=== PATIENT | female | born 1940 | race African-American/Black ===

== ENCOUNTER 2020-05-05 11:19 | Inpatient (IN) | payer OTHER ==
[~2020-05-05] VITALS: Ht 154.9 cm; Wt 76.2 kg
[2020-05-05 11:26] VITALS: BP 168/93
--- NOTE | 2020-05-05 12:07 | NUR ---
RETURNED FROM RADIOLOGY
[2020-05-05 12:09] LABS: RDW 16.2 % (10.5-14.5); WBC 4.3 thou/uL (4.0-11.0)
[2020-05-05 12:12] LABS: HEMOGLOBIN 9.1 gm/dL (12.0-15.0); MCH 29.5 pg (26.0-34.0); MCHC 30.4 g/dL (28.0-37.0); MCV 96.9 fL (80.0-100.0); PLATELET COUNT 297 thou/uL (150-400)
[2020-05-05 12:19] LABS: ANION GAP 11 mmol/L (7-16); BUN 39 mg/dL (7-18); CALCIUM 10.1 mg/dL (8.5-10.1); CHLORIDE 108 mmol/L (98-107); CO2 21 mmol/L (21-32); CREATININE 2.2 mg/dL (0.6-1.0); GLUCOSE 88 mg/dL (74-106); POTASSIUM 4.3 mmol/L (3.5-5.1); SODIUM 140 mmol/L (136-145)
[2020-05-05 12:29] LABS: ALBUMIN 2.6 g/dL (3.4-5.0); DIRECT BILIRUBIN < 0.1 mg/dL (<0.1-0.2); SGOT 27 U/L (15-37); SGPT 16 U/L (14-59); TOTAL BILIRUBIN 0.2 mg/dL (0.2-1.0); TOTAL PROTEIN 6.9 g/dL (6.4-8.2); TROPONIN-I <0.06 ng/mL (<0.06)
[2020-05-05 13:05] LABS: URINE BILIRUBIN NEGATIVE (Negative); URINE BLOOD 1+ (Negative); URINE CLARITY CLOUDY; URINE COLOR YELLOW; URINE GLUCOSE-RANDOM* NEGATIVE (Negative); URINE KETONES NEGATIVE (Negative); URINE LEUKOCYTES-REFLEX 3+ (Negative); URINE NITRITE-REFLEX NEGATIVE (Negative); URINE PROTEIN (DIPSTICK) 2+ (Negative); URINE UROBILINOGEN 0.2 E.U./dl (0.2-1.0)
[2020-05-05 13:09] LABS: ABSOLUTE NEUTROPHILS 1.2 thou/uL (1.4-8.2); ATYPICAL LYMPHS 5 %; PLATELET ESTIMATE NORMAL
[2020-05-05 13:17] LABS: AMORPHOUS URATES Many /LPF (None Seen); BACTERIA-REFLEX None Seen /HPF (None Seen); CASTS None Seen /LPF (None Seen); SQUAMOUS None Seen /LPF (0-3); URINE RBC 0-2 Rare /HPF (0-2); URINE WBC-REFLEX >25 Many /HPF (0-5)
[2020-05-05] MEDS ORDERED: LEVOTHYROXINE175 MCG PO (15:24)
[2020-05-05] MEDS ORDERED: FLUTICASONE PRO16 GM NARES (15:25)
[2020-05-05] MEDS ORDERED: LOPRESSOR50 PO (16:48)
[2020-05-05] MEDS ORDERED: OMEPRAZOLE40 MG PO (16:48)
[2020-05-05] MEDS ORDERED: NORVASC5 MG PO (16:50)
[2020-05-05] MEDS ORDERED: ALLOPURINOL 30300 M1 PO (16:50)
[2020-05-05] MEDS ORDERED: ASA81BEC PO (16:51)
[2020-05-05] MEDS ORDERED: LOPERAMIDE2 MG PO (16:52)
[2020-05-05] MEDS ORDERED: THERAGRAN-M PR1 EAC1 PO (16:53)
[2020-05-05] MEDS ORDERED: LORATIDINE 10 M10 M1 PO (16:53)
[2020-05-05] MEDS ORDERED: VITAMIN C500 M2 PO (16:54)
[2020-05-05] MEDS ORDERED: VITAMIN D325 MC3 PO (16:55)
[2020-05-05] MEDS ORDERED: ZINC SULFATE220 MG PO (16:55)
[2020-05-05] MEDS ORDERED: [UNRECOGNIZED DRUG - OTHER] PO (16:57)
--- NOTE | 2020-05-05 17:00 | NUR ---
NAOMI APPLIED FOR INCONTINENCY OF URINE
[2020-05-05 18:49] VITALS: BP 124/64
[2020-05-05 21:04] VITALS: BP 124/64
[2020-05-05 21:34] VITALS: BP 132/67
[2020-05-05 22:00] VITALS: BP 149/83
--- NOTE | 2020-05-06 03:14 | NUR ---
PT CARE ADMITTED INTO THE UNIT FROM THE ER WITH COMPLAIN OF BODY WEAKNESS AND GENERALIZED BODY PAIN.PT IS ON BEDREST AND USING A WHEELCHAIR AT FACILITY.PT IS A/O X4.ABLE TO GIVE HISTORY AND KNOW WHERE SHE IS WITH NO CONFUSION.PT REFUSED TYLENOL FOR PAIN AND JUST WANTED TO BE REPOSITIONED AND SAID SHE IS FINE WITH BEING REPOSITIONED AND SBLE TO TURN FROM SIDE TO SIDE.SISTER CALLED TWICE BUT NURSE WAS BUSY.I RETURNED THE CALLS 3X BUT UNABLE TO REACH HER.PT HAS EXTERNAL CATHETER IN PLACE.AND SKIN INTACT.FALL PRECAUTIONS IN PLACE AND PT ABLE TO CALL FOR HELP APPROPRIETELY.WILL CONTINUE TO MONITOR PER POC
[2020-05-06 04:56] LABS: HEMATOCRIT 26.3 % (37.0-47.0); HEMOGLOBIN 8.2 gm/dL (12.0-15.0); MCH 30.3 pg (26.0-34.0); MCHC 31.2 g/dL (28.0-37.0); MCV 97.1 fL (80.0-100.0); RBC 2.71 mil/uL (4.20-5.00); RDW 16.2 % (10.5-14.5); WBC 3.8 thou/uL (4.0-11.0)
[2020-05-06 05:05] LABS: CALCIUM 9.4 mg/dL (8.5-10.1); POTASSIUM 4.3 mmol/L (3.5-5.1)
[2020-05-06 05:29] VITALS: BP 138/73
[2020-05-06 08:13] VITALS: BP 144/94
[2020-05-06 16:47] VITALS: BP 144/78
--- NOTE | 2020-05-06 17:41 | NUR ---
Assumed pt care at 7am.Pt in bed c/o cold temp.Termostat in room adjusted but room still cold.Warm blanket given but pt still cold.Pt transfered to 458 before lunch.Assessment completed.vss.Pt has good appetite and adequate u/o per andre. Maintenace ivf in progress. Fall bundle in place.Will continue to monitor.
[2020-05-06 19:30] VITALS: BP 133/73
--- NOTE | 2020-05-07 03:20 | NUR ---
PT CARE ASSUMED WITH PT IN BED WATCHING TV.PT IS A/O X4.PT DENIED PAIN,N/V. AND APPEAR TO BE IN NO ACUTE DISTRESS.IV ACCESS ON RT AC WITH NS AT 100CC/HR.PT HAS A PUREWICK WORKING OK WITH GOOD OUTPUT.WILL CONTINUE TO MONITOR
[2020-05-07 07:07] VITALS: BP 128/81
--- NOTE | 2020-05-07 07:30 | EKG ---
[place] [address] [email or web address] [place] [address] ELECTROCARDIOGRAM REPORT Name: PAZ SYLVESTER Room #: 458-P ADM IN M.R.#: [id number] Admission: 05/05/20 Attend Phys: Ralph Wilkes MD Discharge: Date of : 42 Report #: [id number] [facility] ED Test Date: 2020-05-05 Test Time: 11:36:04 Pat Name: PAZ SYLVESTER Department: Room: 458 Gender: F Resident Care Associate: KF : 1940 Requested By: Yosi Cannon Order Number: [id number] MD: Jose David Gamez Measurements Intervals Rush Rate: 67 P: 32 AK: 178 QRS: -15 QRSD: 92 T: 25 QT: 426 QTc: 450 Interpretive Statements Sinus rhythm Inferior infarct, old Poor R wave progression Baseline wander in lead(s) V1 No previous ECG available for comparison Electronically Signed On 05-07-2020 7:30:35 MERCHANDISE MARKER by Jose David Gamez [email or web address] <ELECTRONICALLY SIGNED> By: Jose David Gamez MD, [facility] 05/07/20 0730 1136 113 Jose David Gamez MD, FACC /EPI
[2020-05-07 10:11] LABS: HEMATOCRIT 26.7 % (37.0-47.0); HEMOGLOBIN 8.3 gm/dL (12.0-15.0); MCV 96.9 fL (80.0-100.0); RBC 2.76 mil/uL (4.20-5.00); RDW 15.6 % (10.5-14.5)
[2020-05-07 10:22] LABS: CALCIUM 9.4 mg/dL (8.5-10.1); CREATININE 1.8 mg/dL (0.6-1.0); POTASSIUM 3.9 mmol/L (3.5-5.1)
--- NOTE | 2020-05-07 14:55 | NUR ---
PT IS FROM [facility] FAXED CLINICAL UPDATE RECEIVED CONFIRMATION AND SPOKE WITH IRVIN IN ADM SHE WILL SUBMIT FOR AUTH FOR SKILLED STAY AT DC PT WILL NEED IV ABX AT DC.
[2020-05-07 15:00] VITALS: BP 126/95
--- NOTE | 2020-05-07 15:39 | NUR ---
PT ADMITTED REALTED TO WEAKNESS, UTI. CM REVIEWED CHART AND SPOKE WITH CARE TEAM. CM MET WITH PT AT BEDSIDE THIS DAY. PT APPEARED TO BE A&O X4. CM ROLE INTRODUCED. PT INDICATED SHE RESIDES AT [facility]. PT INDICATED THAT SHE USES A WC, A BRIGHT LIFT, AND A HOSPITAL BED TO ASSIST WITH MOBILITY AT [facility]. SHE INDICATED SHE PLANS TO RETURN HOME ONCE MEDICALLY STABLE. CM SPOKE WITH JEFF IN ADMISSIONS AT FACILITY AND IT WAS INDICATED THAT THEY ARE ABLE TO ACCEPT PT BACK ONCE MEDICALLY STABLE. CARE TEAM INDICATED PT MAY NEED TO RETURN ON IV ABX. FACILITY SOUGHT AUTH. AWAITING FINAL ID RECS AND INSURANCE AUTH FOR PT TO RETURN. CM TO FOLLOW INDICATED WITH DC PLANNING.
--- NOTE | 2020-05-07 17:18 | NUR ---
DR MATTHEW WANTED TO KNOW IF [facility] COULD OBTAIN FOSFOMYCIN ABX FOR PT. S/W IRVIN & SHE WAS LEAVING FOR THE DAY. FAXED ORDER TO THE FACILITY. S/W JEFF WHO S/W THE [facility] & THEY CAN OBTAIN THE MEDICATION TOMORROW. DR MATTHEW SAYS TO HOLD DC UNTIL FACILITY HAS THE ABX IN THE BUILDING FOR THE PT. NOTIFIED JEFF OF THIS & SHE FAXED ORDER TO THE PHARMACY.
--- NOTE | 2020-05-07 19:50 | NUR ---
Assumed pt care this am, VS stable. No bm, stool sample needed, endorsed to the night nurse. Diet changed to mech chopped. External FC in place, seen by ID new orders given endorsed to the night nurse. POC followed with no signs or verbalizations of distres noted.
[2020-05-07 19:52] VITALS: BP 128/82
--- NOTE | 2020-05-07 20:23 | HC ---
[facility] [place] [address] CONSULTATION Name: PAZ SYLVESTER Room #: 458-P ADM IN M.R.#: [id number] Admission: 05/05/20 Attend Phys: Ralph Wilkes MD Discharge: Date of : 42 Report #: [id number] THIS REPORT FOR: cc: Monica Montenegro MD, Ramilo MD Geha,Pablo Rashid MD ~ DATE OF SERVICE: 05/07/2020 INFECTIOUS DISEASE CONSULTATION REASON FOR CONSULTATION: I was asked to evaluate concerning urinary tract infection. HISTORY OF PRESENT ILLNESS: The patient is a 79-year-old [facility] resident with underlying history of stroke and generalized debility, who has been essentially bedbound for the last several years, who presents with altered mental status, possibly ischemic in nature in addition was identified with a polymicrobial urinary tract infection. She had identified many wbc's, no bacteria on urinalysis, but urine culture had showed greater than 100,000 E. coli, half of which were a sensitive organism, the other half a multidrug resistant. She was placed on meropenem. She has remained without fever, chills or sweats. Overall, feels better today. She also had evidence of acute kidney injury with creatinine up to 2.2. Now her urine output has improved. Creatinine is down to 1.8. She denies a history of recurrent urinary tract infections. She has had no urologic procedures and has been without nausea, vomiting or back or flank pain. Denies any dysuria or frequency. She has a Purewick in place. She is incontinent of urine. REVIEW OF SYSTEMS: A 14-point review of system was negative other than what has been described above. PAST MEDICAL HISTORY: Gastroesophageal reflux, stroke, colon cancer, colon resection, hypertension, hyperlipidemia, and laparoscopic cholecystectomy. FAMILY HISTORY: Without reported tuberculosis. SOCIAL HISTORY: She lives in a nursing home unit, nonsmoker, no significant alcohol intake. ALLERGIES: PENICILLIN AND DEMEROL. She is unclear if she is able to take other PENICILLINS OR CEPHALOSPORINS. MEDICATIONS: As noted on her MAR, which were reviewed. PHYSICAL EXAMINATION: [facility] [address] [place] [address] CONSULTATION Name: PAZ SYLVESTER Room #: 458-P [facility] IN M.R.#: [id number] Admission: 05/05/20 Attend Phys: Ralph Wilkes MD Discharge: Date of : 42 Report #: [id number] VITAL SIGNS: Afebrile, hemodynamically stable. GENERAL: She was alert, and cooperative, pleasant, in no acute distress. SKIN: Without rash or decubitus. No palpable adenopathy. She is moderately obese. EYES: Without scleral icterus. MOUTH: Without mucositis. CHEST: Clear. HEART: Regular, without murmur, gallop or rub. ABDOMEN: Soft and nontender with no hepatosplenomegaly or mass other than fullness in the suprapubic region, nursing staff did a bladder scan and did not find any significant residual in the bladder. RECTAL: Not performed. She had a Purewick in her vulvar region. EXTREMITIES: With 1+ edema in lower extremities. The patient had generalized weakness to her lower extremities. Sensation was intact. Mood is without anxiety or depression. LABORATORY STUDIES: Reviewed. Microbiology reviewed. CT scan of the head reviewed. IMPRESSION: 1. A 79-year-old with multidrug resistant Escherichia coli cystitis. 2. Confusional state, now improved. 3. Acute kidney injury, improved. 4. History of stroke and colon cancer. 5. Anemia. RECOMMENDATIONS: We will continue with possible __ for 3 doses. This should be adequate to treat a multidrug resistant organism without use of intravenous antibiotic. If unable to obtain the medications due to her living situation, we would next consider nitrofurantoin for the next 10 days. We will discuss further with Dr. Wilkes. <ELECTRONICALLY SIGNED> By: Pablo Milton MD 05/07/202022 1619 181 Pablo Milton MD /nt
[2020-05-08 07:29] VITALS: BP 149/93
--- NOTE | 2020-05-08 07:51 | NUR ---
PROGRESS PT A/O X4 REPOSITIONED Q2, IVF'S INFUSING WITHOUT DIFFICULTY. PT DENIES PAIN SLEPT THROUGHOUT THE NIGHT HOPES TO DC BACK TO [facility] AFTER PT/OT TODAY
[2020-05-08 09:10] VITALS: BP 149/93
[2020-05-08] MEDS ORDERED: MONUROL3 GM PO (11:36)
--- NOTE | 2020-05-08 12:36 | NUR ---
PT DISCHARGING TODAY TO [facility] FAXED DC ORDERS/SUMMARY TO FACILITY SPOKE WITH IRVIN IN ADM SHE RECEIVED ORDERS. ARRANGED TRANSPORT WITH [facility] FOR 12OO TODAY. LEFT VOICEMAIL WITH PT'S SISTER (SHERMAN) OF DC AND TIME OF TRANSPORT AND MY CELL NUMBER IN CASE SHE HAS ANY QUESTIONS. NOTIFIED UNIT AND CHART COPY PER US. RN TO CALL REPORT TO [phone].
--- NOTE | 2020-05-08 13:31 | NUR ---
Assumed pt care this am, vs stable. POC followed with no signs or verbalizations of distress noted. DC order given, IV removed report given to the facility. Pt is now dc.
== END 2020-05-08 12:38 | DRG 682 ==
LOC: ER 11:19 → 4W 14:12 → EROBS 14:12 → 4W 21:35
PROVIDERS: Emergency Medicine; ADMIT Hospitalist; ATTEND Hospitalist
DX: N17.0 Acute kidney failure with tubular necrosis (principal); G92 Toxic encephalopathy; N39.0 Urinary tract infection, site not specified; I69.352 Hemiplegia and hemiparesis following cerebral infarction affecting left dominant side; E44.0 Moderate protein-calorie malnutrition; N18.30 Chronic kidney disease, stage 3 unspecified; I25.10 Atherosclerotic heart disease of native coronary artery without angina pectoris; E03.9 Hypothyroidism, unspecified; E11.22 Type 2 diabetes mellitus with diabetic chronic kidney disease; I12.9 Hypertensive chronic kidney disease with stage 1 through stage 4 chronic kidney disease, or unspecified chronic kidney disease; F32.9 Major depressive disorder, single episode, unspecified; E86.0 Dehydration; R41.0 Disorientation, unspecified; D64.9 Anemia, unspecified; B96.20 Unspecified Escherichia coli [E. coli] as the cause of diseases classified elsewhere; D63.8 Anemia in other chronic diseases classified elsewhere; Z20.822 Contact with and (suspected) exposure to COVID-19; K21.9 Gastro-esophageal reflux disease without esophagitis; Z88.0 Allergy status to penicillin; Z88.8 Allergy status to other drugs, medicaments and biological substances; Z85.038 Personal history of other malignant neoplasm of large intestine; Z79.899 Other long term (current) drug therapy; Z79.82 Long term (current) use of aspirin
CPT/HCPCS: 10040; 10045

== ENCOUNTER 2021-04-01 05:44 | Inpatient (IN) | payer OTHER ==
[~2021-04-01] VITALS: Ht 160 cm; Wt 67.6 kg
--- NOTE | ~2021-04-01 | EMS ---
[facility] [address] [place] [address] EMS Patient Care Report Name: PAZ SYLVESTER Room #: REG [place]#: [id number] Admission: 04/01/21 Attend Phys: Discharge: Date of : 42 Report #: [id number] THIS REPORT FOR: //name// Report Transmitted: 04/01/2021 05:27 EMS Care Summary [place], [place]/[facility] Incident [id number] @ 04/01/2021 05:13 Incident Location [address] Patient PAZ SYLVESTER Female, 80 Years 1940 Patient Address Patient History Diabetes,Gastro-Esophageal Reflux Disease (GERD),Depression,Hypothyroidism,Dysphagia,Novel Coronavirus (COVID-19), Patient Allergies Penicillin allergy,Meperidine, Chief Complaint Covid Disposition Transported No Lights/[place] Reason Breathing Problem Transported To [facility] Narrative [place] staff reports pt Covid + 12/. last night she started to have increased work of breathing and 02 sats in the upper 80s. pt placed on . her current sat is 96%. pt is alert and confused per norm. she is to be eval at [facility]. pt cont on , lifted to cot, transport w/o change. report to staff rm 10. Initial Vitals [facility] [address] [place] [address] EMS Patient Care Report Name: PAZ SYLVESTER Room #: REG [facility].#: [id number] Admission: 04/01/21 Attend Phys: Discharge: Date of : 42 Report #: [id number] @05:33P: 77,R: 24,BP: 143/69,GCS: 15,Temp: 98.6F,SpO2: 96,Revised Trauma: 12, Assessments @05:26MENTAL:Confused,SKIN:No Abnormalities,HEENT:Head/Face: No Abnormalities,LUNG SOUNDS:ABDOMEN:PELVIS//GI:EXTREMITIES:PULSE:Radial: 2+ Normal,NEURO:Other, Impression COVID-19 - Confirmed by testing Procedures @05:26 ALS Assessment Response: Unchanged @05:29 Stretcher Response: Unchanged @PTAOxygen FlowRate: 4 Device: Nasal Cannula (NC) Response: ImprovedSucceeded Timeline MEDICAL RECORDS MANAGER,Oxygen FlowRate: 4 Device: Nasal Cannula (NC) Response: ImprovedSucceeded, 05:12,Call Received 05:12,Dispatch Notified 05:13,Dispatched 05:14,En Route 05:20,On Scene 05:26,At Patient 05:26,ALS Assessment,Response: Unchanged 05:29,Stretcher,Response: Unchanged 05:33,BP: 143/69 M,PULSE: 77,RR: 24 R,SPO2: 96 Ox,ETCO2: ,BG: ,PAIN: ,GCS: 15, 05:36,Depart Scene 05:39,At Destination 06:03,Call Closed Disclaimer v1.1 Copyright 2020 [employer] This EMS Care Summary contains data elements from the applicable legal record (which may be displayed differently). It is designed to provide pertinent information for the following purposes: continuity of care, clinical quality, and state data reporting. The complete legal record is available to ED staff and administrators of the receiving hospital in [employer]'s Patient Tracker. All data is provided "as is."
[~2021-04-01 05:44] MED LIST: ALLOPURINOL 30300 M1 PO; ASA81BEC PO; FLUTICASONE PRO16 GM NARES; LEVOTHYROXINE175 MCG PO; LOPERAMIDE2 MG PO; LOPRESSOR50 PO; LORATIDINE 10 M10 M1 PO; MONUROL3 GM PO; NORVASC5 MG PO; OMEPRAZOLE40 MG PO; THERAGRAN-M PR1 EAC1 PO; VITAMIN C500 M2 PO; VITAMIN D325 MC3 PO; ZINC SULFATE220 MG PO; [UNRECOGNIZED DRUG - OTHER] PO
[2021-04-01 05:55] VITALS: BP 84/50
[2021-04-01 06:36] LABS: BE(vivo) -17.8 mmol/L (-2 to +3); HCO3 10.5 mmol/L (22.0-26.0); PCO2 34.4 mmHg (35.0-45.0); PO2 71.5 mmHg (80.0-100.0); sO2 88.3 % (92.0-98.0)
[2021-04-01 06:37] LABS: pH 7.103 (7.360-7.450)
[2021-04-01 06:50] LABS: CALCIUM 8.6 mg/dL (8.5-10.1); POTASSIUM 5.1 mmol/L (3.5-5.1)
[2021-04-01 06:53] LABS: HEMOGLOBIN 9.1 gm/dL (12.0-15.0); RDW 16.6 % (10.5-14.5)
[2021-04-01 06:54] LABS: MCH 28.9 pg (26.0-34.0); MCHC 31.3 g/dL (28.0-37.0); MCV 92.3 fL (80.0-100.0); PLATELET COUNT 244 thou/uL (150-400); RBC 3.14 mil/uL (4.20-5.00); WBC 5.2 thou/uL (4.0-11.0)
[2021-04-01 07:03] LABS: ALBUMIN 1.8 g/dL (3.4-5.0); TOTAL BILIRUBIN 0.3 mg/dL (0.2-1.0); TOTAL PROTEIN 6.8 g/dL (6.4-8.2)
--- NOTE | 2021-04-01 07:24 | EKG ---
[place] [address] [facility] [place] [address] ELECTROCARDIOGRAM REPORT Name: PAZ SYLVESTER [id number] Admission: 04/01/21 Attend Phys: Discharge: Date of : 42 Report #: [id number] [facility] ED Test Date: 2021-04-01 Test Time: 06:44:38 Pat Name: PAZ SYLVESTER Department: Room: Gender: F Belt Cleaner: : 1940 Requested By: Mau Reid Order Number: [id number] MD: Kun Parra Measurements Intervals Coulters Rate: 77 P: 38 VA: 186 QRS: -23 QRSD: 90 T: 58 QT: 533 QTc: 604 Interpretive Statements Sinus rhythm Probable left atrial enlargement Nonspecific T abnormalities, lateral leads Prolonged QT interval Compared to ECG 05/05/2020 11:36:04 T-wave abnormality now present Prolonged QT interval now present Poor R-wave progression no longer present Electronically Signed On 04-01-2021 7:24:13 COFFEE ROASTER by Kun Parra [email or web address] <ELECTRONICALLY SIGNED> By: Kun Parra MD, [facility] 04/01/21723 Kun Parra MD, [facility] /EPI
[2021-04-01 08:25] LABS: URINE BLOOD 3+ (Negative); URINE CLARITY CLOUDY; URINE COLOR YELLOW; URINE GLUCOSE-RANDOM* NEGATIVE (Negative); URINE KETONES NEGATIVE (Negative); URINE LEUKOCYTES-REFLEX 2+ (Negative); URINE NITRITE-REFLEX NEGATIVE (Negative); URINE PROTEIN (DIPSTICK) 3+ (Negative); URINE SPECIFIC GRAVITY 1.025 (1.005-1.035); URINE UROBILINOGEN 0.2 E.U./dl (0.2-1.0)
[2021-04-01 08:26] LABS: ICTOTEST (BILI CONFIRMATORY) Negative (Negative); URINE BILIRUBIN NEGATIVE (Negative)
[2021-04-01 08:44] LABS: SQUAMOUS 0-3 Few /LPF (0-3)
[2021-04-01 08:45] LABS: AMORPHOUS URATES Moderate /LPF (None Seen); CASTS None Seen /LPF (None Seen); URINE RBC 1-2 Rare /HPF (NONE SEEN)
[2021-04-01] MEDS ORDERED: CARAFATE 1 GM TA1 G1 PO (09:16)
[2021-04-01 09:47] LABS: ABSOLUTE NEUTROPHILS 3.8 thou/uL (1.4-8.2); ANISOCYTOSIS 1+; METAMYELOCYTES 2 %; NUCLEATED RBCS 8 /100WBC; PLATELET ESTIMATE NORMAL
[2021-04-01 14:10] LABS: % SATURATION 9 % (20-39); IRON 13 ug/dL (50-170); TIBC 145 ug/dL (250-450)
[2021-04-01 14:16] LABS: CALCIUM 7.8 mg/dL (8.5-10.1); CREATININE 4.8 mg/dL (0.6-1.0); POTASSIUM 4.7 mmol/L (3.5-5.1)
--- NOTE | 2021-04-01 15:57 | NUR ---
DR MATTHEW NOTIFIED PATIENT HAS NO PULSE AT THIS TIME, PATIENT IS DNR.
[2021-04-01 19:56] VITALS: BP 0/0
--- NOTE | 2021-04-01 19:56 | NUR ---
DR. GILLILAND TO BEDSIDE - TIME OF IS 2055. VERIFIED
--- NOTE | 2021-04-01 20:11 | NUR ---
TIME OF 1955 - VERIFIED AT BEDSIDE BY DR. GILLILAND
--- NOTE | 2021-04-01 20:21 | NUR ---
SPOKE WITH PATIENT'S SISTER SHERMAN, NOTIFIED OF PATIENT . SHERMAN CONFIRMED ADDRESS & PHONE NUMBER IN [employer] IS CORRECT. SISTER WILL CALL AT LAER TIME WITH HOME INFORMATION
== END 2021-04-01 19:56 | DRG 871 ==
LOC: ER 05:44 → EROBS 08:30
PROVIDERS: Emergency Medicine; Nurse Practitioner; ADMIT Hospitalist; ATTEND Hospitalist
PROC: 5A09357 Assistance with Respiratory Ventilation, Less than 24 Consecutive Hours, Continuous Positive Airway Pressure (ICD-10-PCS; principal; 2021-04-01)
DX: A41.89 Other specified sepsis (principal); U07.1 COVID-19; J96.01 Acute respiratory failure with hypoxia; E43 Unspecified severe protein-calorie malnutrition; J12.82 Pneumonia due to coronavirus disease 2019; N17.9 Acute kidney failure, unspecified; I69.351 Hemiplegia and hemiparesis following cerebral infarction affecting right dominant side; E87.1 Hypo-osmolality and hyponatremia; Z66 Do not resuscitate; I25.10 Atherosclerotic heart disease of native coronary artery without angina pectoris; E03.9 Hypothyroidism, unspecified; I12.9 Hypertensive chronic kidney disease with stage 1 through stage 4 chronic kidney disease, or unspecified chronic kidney disease; N18.30 Chronic kidney disease, stage 3 unspecified; F32.A Depression, unspecified; E55.9 Vitamin D deficiency, unspecified; R79.82 Elevated C-reactive protein (CRP); M10.072 Idiopathic gout, left ankle and foot; R77.8 Other specified abnormalities of plasma proteins; E86.0 Dehydration; R65.20 Severe sepsis without septic shock; D64.9 Anemia, unspecified; M10.071 Idiopathic gout, right ankle and foot; M17.0 Bilateral primary osteoarthritis of knee; E11.22 Type 2 diabetes mellitus with diabetic chronic kidney disease; K59.00 Constipation, unspecified; Z79.899 Other long term (current) drug therapy; Z88.0 Allergy status to penicillin; Z88.8 Allergy status to other drugs, medicaments and biological substances; Z85.038 Personal history of other malignant neoplasm of large intestine; Z68.26 Body mass index [BMI] 26.0-26.9, adult; Z87.440 Personal history of urinary (tract) infections; Z86.14 Personal history of Methicillin resistant Staphylococcus aureus infection